=== PATIENT | male | born 1975 | race Caucasian/White ===

== ENCOUNTER → 2016-11-04 | Outpatient (CLI) | payer OTHER ==
[2016-11-04 12:59] LABS: ALBUMIN 3.8 GM/DL (3.2-5.2); ALBUMIN/GLOBULIN RATIO 1.03 (1.00-1.93); ALKALINE PHOSPHATASE 136 U/L (45-117); ALT/SGPT 215 U/L (12-78); ANION GAP 10 MEQ/L (8-16); AST/SGOT 86 U/L (15-37); BILIRUBIN,TOTAL 0.3 MG/DL (0.2-1.0); BLOOD UREA NITROGEN 15 MG/DL (7-18); CALCIUM LEVEL 9.8 MG/DL (8.5-10.1); CARBON DIOXIDE LEVEL 28 MEQ/L (21-32); CHLORIDE LEVEL 103 MEQ/L (98-107); CHOLESTEROL LEVEL 229 MG/DL (<200); CREATININE FOR GFR 1.05 MG/DL (0.70-1.30); GAMMA GLUTAMYLTRANSPEPTIDASE 158 U/L (15-85); GLOMERULAR FILTRATION RATE > 60.0 (>60); GLUCOSE, FASTING 98 MG/DL (70-105); SODIUM LEVEL 141 MEQ/L (136-145); TOTAL PROTEIN 7.5 GM/DL (6.4-8.2); TRIGLYCERIDES LEVEL 319 MG/DL (<150)
[2016-11-04 13:11] LABS: BASO % 0.2 % (0.0-1.0); EOS # 0.2 K/mm3 (0.0-0.50); EOS % 2.4 % (0.0-3.0); LARGE UNSTAINED CELL # 0.1 K/mm3 (0.0-0.4); LYMPH # 1.4 K/mm3 (1.5-4.5); LYMPH % 15.1 % (24.0-44.0); MEAN CORPUSCULAR HEMOGLOBIN 30.1 pg (27.0-33.0); MEAN CORPUSCULAR HGB CONC 33.4 g/dl (32.0-36.5); MEAN CORPUSCULAR VOLUME 90.3 fl (80.0-96.0); MONO # 0.4 K/mm3 (0.0-0.8); MONO % 4.2 % (0.0-5.0); NEUTROPHILS # 6.9 K/mm3 (1.8-7.7); PLATELET COUNT, AUTOMATED 166 k/mm3 (150-450); RED CELL DISTRIBUTION WIDTH 12.3 % (11.5-14.5)
== END ==
LOC: M WUC 10:07
PROVIDERS: ATTEND Family Medicine
DX: R10.11 Right upper quadrant pain (principal); Z13.220 Encounter for screening for lipoid disorders

== ENCOUNTER → 2017-02-14 | Outpatient (CLI) | payer OTHER ==
--- NOTE | 2017-02-14 13:34 | REP ---
Clinical: Right shoulder pain. Technique: Internal rotation, external rotation, and Y view. Findings: Subtle cortical irregularity and inferior spurring at the acromioclavicular joint suggests mild arthritic degenerative changes. Glenohumeral joint appears intact and normal for age. Subacromial space is normal. No periarticular calcifications are appreciated. No acute fracture or dislocation. Impression: Mild arthritic changes at the acromioclavicular joint. Signed by Gabino Menon MD 02/14/2017 01:26 P
== END ==
LOC: M WUC 13:10
PROVIDERS: ATTEND Family Medicine
DX: M25.511 Pain in right shoulder (principal); M19.011 Primary osteoarthritis, right shoulder

== ENCOUNTER → 2017-02-17 | Outpatient (CLI) | payer OTHER ==
[~2017-02-17] MED LIST: ALBU17IN INH; CYCL10TA PO; IBUP200C10 PO; MULT1TAB10 PO; NAPR250T4 PO; OMEP40CA2 PO; OXYC1TAB23 PO; TRAM50TA2 PO
--- NOTE | 2017-02-17 08:53 | REP ---
MRI study of the right shoulder without contrast: History: Pain in the right shoulder. Comparison right shoulder radiographs are from February 14, 2017. Technique: Axial, oblique coronal, and oblique sagittal imaging planes utilized. T1 and T2-weighted scans were obtained with without fat saturation. MRI findings: There is subcortical cyst formation in the superolateral aspect of the humeral head. Cortical and medullary bone signal intensity are otherwise normal. There is osteoarthritic hypertrophy superiorly and inferiorly at the acromioclavicular joint. There is a full-thickness T2 hyperintense 9 mm defect in the distal supraspinatus tendon at its distal insertion consistent with a full-thickness rotator cuff tear. A small quantity of subacromial subdeltoid bursal fluid is seen and there is a small amount of glenohumeral joint fluid. The infraspinatus and subscapularis tendons appear intact. No anterior or posterior labral disruption is seen. Superior labrum appears intact on T2-weighted scans. Biceps tendon is in the bony bicipital groove and appears intact. No juxtaarticular cyst or mass is seen. Impression: Full-thickness distal supraspinatus tendon cuff tear. Signed by Michael Kay MD 02/17/2017 08:45 A
== END ==
LOC: M RAD 06:53
PROVIDERS: ATTEND Student in an Organized Health Care Education/Training Program
DX: M25.511 Pain in right shoulder (principal)

== ENCOUNTER → 2017-02-27 | Outpatient (CLI) | payer OTHER ==
[~2017-02-27] VITALS: Ht 177.8 cm; Wt 92.1 kg
[~2017-02-27] MED LIST changes: +LIDOCAINE 2% INJ 100 MG/5 ML SDV (FOR ANES.) As Ordered ONE; +NS 1,000 ML IV ONE; +PROPOFOL 200 MG/20 ML VIAL As Ordered ONE
--- NOTE | 2017-02-27 12:37 | ROOR ---
Patient Name: Michael Christopher Procedure Date: 02/27/2017 12:18 PM Date of : 1975 Age: 41 Room: [facility] Gender: Male Note Status: Finalized Procedure: Upper Endoscopy + Biopsies Indications: Heartburn Providers: Danny Mercado MD Referring MD: Alyse Grider [facility] Requesting Provider: Medicines: Monitored Anesthesia Care Complications: No immediate complications. Procedure: Pre-Anesthesia Assessment: - The heart rate, respiratory rate, oxygen saturations, blood pressure, adequacy of pulmonary ventilation, and response to care were monitored throughout the procedure. The Endoscope was introduced through the mouth, and advanced to the second part of duodenum. The upper GI endoscopy was accomplished without difficulty. The patient tolerated the procedure well. Findings: The Z-line was regular and was found 40 cm from the incisors. Mucosal changes including ringed esophagus, longitudinal furrows, circumferential folds and crepe paper esophagus were found in the entire esophagus. Biopsies were obtained from the proximal and distal esophagus with cold forceps for histology of suspected eosinophilic esophagitis. A small hiatal hernia was present. Mildly severe esophagitis with no bleeding was found 40 cm from the incisors. Few superficial esophageal ulcers with no bleeding and no stigmata of recent bleeding were found 40 cm from the incisors. No other significant abnormalities were identified in a careful examination of the stomach. The exam of the duodenum was otherwise normal. Impression: - Z-line regular, 40 cm from the incisors. - Esophageal mucosal changes suggestive of eosinophilic esophagitis. Biopsied. - Small hiatal hernia. - Mildly severe reflux esophagitis. - Non-bleeding esophageal ulcers. - The examination was otherwise normal. Recommendation: - Patient has a contact number available for emergencies. The signs and symptoms of potential delayed complications were discussed with the patient. Return to normal activities tomorrow. Written discharge instructions were provided to the patient. - High fiber diet. - Discharge patient to home. - Continue present medications. - Await pathology results. - Telephone GI clinic for pathology results in 1 week. - Return to referring physician. - The findings and recommendations were discussed with the patient's family. - Patient has a contact number available for emergencies. The signs and symptoms of potential delayed complications were discussed with the patient. Return to normal activities tomorrow. Written discharge instructions were provided to the patient. - Discharge patient to home. - Follow an antireflux regimen. - Use Prilosec (omeprazole) 40 mg PO BID. - Return to referring physician. - Telephone GI clinic for pathology results in 1 week. - Check Portal Online for Path Results.([email or web address]) - The findings and recommendations were discussed with the patient's family. Danny Mercado MD Danny Mercado MD 02/27/2017 12:37:25 PM This report has been signed electronically. Number of Addenda: 0 Note Initiated On: 02/27/2017 12:18 PM Estimated Blood Loss: Estimated blood loss: none.
--- NOTE | 2017-02-27 12:49 | ROOR ---
Patient Name: Michael Christopher Procedure Date: 02/27/2017 12:19 PM Date of : 1975 Age: 41 [facility] Gender[facility] Note Status: Finalized Procedure: Total Colonoscopy to Cecum Indications: Rectal bleeding Providers: Danny Mercado MD Referring MD: Alyse Grider [facility] Requesting Provider: Medicines: Monitored Anesthesia Care Complications: No immediate complications. Procedure: Pre-Anesthesia Assessment: - The heart rate, respiratory rate, oxygen saturations, blood pressure, adequacy of pulmonary ventilation, and response to care were monitored throughout the procedure. The Colonoscope was introduced through the anus and advanced to the cecum, identified by appendiceal orifice and ileocecal valve. The colonoscopy was performed without difficulty. The patient tolerated the procedure well. The quality of the bowel preparation was good. Findings: The perianal and digital rectal examinations were normal. Non-bleeding internal hemorrhoids were found during retroflexion. The hemorrhoids were small and Grade I (internal hemorrhoids that do not prolapse). No other significant abnormalities were identified in a careful examination of the remainder of the colon. The exam was otherwise without abnormality on direct and retroflexion views. Impression: - Non-bleeding internal hemorrhoids. - The examination was otherwise normal on direct and retroflexion views. - No specimens collected. - The exam was otherwise normal to the cecum. Recommendation: - Patient has a contact number available for emergencies. The signs and symptoms of potential delayed complications were discussed with the patient. Return to normal activities tomorrow. Written discharge instructions were provided to the patient. - High fiber diet. - Discharge patient to home. - Continue present medications. - Repeat colonoscopy in 10 years for screening purposes. - Return to referring physician. - The findings and recommendations were discussed with the patient's family. Danny Mercado MD Danny Mercado MD 02/27/2017 12:49:04 PM This report has been signed electronically. Number of Addenda: 0 Note Initiated On: 02/27/2017 12:19 PM Estimated Blood Loss: Estimated blood loss: none.
[2017-02-27 13:19] VITALS: BP 131/88
== END | disposition home or self-care (01) ==
LOC: M OPP 11:44
PROVIDERS: ATTEND Internal Medicine Gastroenterology
DX: K62.5 Hemorrhage of anus and rectum (principal); K64.0 First degree hemorrhoids; R12 Heartburn; K44.9 Diaphragmatic hernia without obstruction or gangrene; K21.0 Gastro-esophageal reflux disease with esophagitis; K22.10 Ulcer of esophagus without bleeding; E78.5 Hyperlipidemia, unspecified; R51 Headache; J45.909 Unspecified asthma, uncomplicated; R06.83 Snoring; G47.8 Other sleep disorders; Z80.3 Family history of malignant neoplasm of breast; Z80.0 Family history of malignant neoplasm of digestive organs; F17.210 Nicotine dependence, cigarettes, uncomplicated; Z79.899 Other long term (current) drug therapy

== ENCOUNTER 2017-04-19 09:45 | Outpatient (RCR) | payer OTHER ==
[~2017-04-19 09:45] MED LIST changes: -LIDOCAINE 2% INJ 100 MG/5 ML SDV (FOR ANES.) As Ordered ONE; -MULT1TAB10 PO; -NAPR250T4 PO; -NS 1,000 ML IV ONE; -OMEP40CA2 PO; -OXYC1TAB23 PO; -PROPOFOL 200 MG/20 ML VIAL As Ordered ONE; -TRAM50TA2 PO
[2017-05-08] MEDS ORDERED: MULT1TAB10 PO (12:49)
[2017-05-08] MEDS ORDERED: IBUP200C10 PO (12:49)
[2017-05-08] MEDS ORDERED: NAPR250T4 PO (12:49)
[2017-05-08] MEDS ORDERED: OXYC1TAB23 PO (12:49)
== END 2017-04-20 09:39 | disposition home or self-care (01) ==
LOC: M PT 09:45
PROVIDERS: ATTEND Orthopaedic Surgery
DX: Z47.89 Encounter for other orthopedic aftercare (principal)

== ENCOUNTER 2017-04-24 14:50 | Emergency (ER) | payer OTHER, SELFPAY ==
[~2017-04-24] VITALS: Ht 175.3 cm; Wt 90.0 kg
[2017-04-24 14:50] VITALS: BP 129/86
[2017-04-24] MEDS ORDERED: TRAM50TA2 PO (19:27)
[2017-04-24] MEDS ORDERED: OMEP40CA2 PO (19:27)
[2017-04-24] MEDS ORDERED: OXYC1TAB23 PO (19:29)
[2017-05-08] MEDS ORDERED: MULT1TAB10 PO (12:49)
[2017-05-08] MEDS ORDERED: OXYC1TAB23 PO (12:49)
[2017-05-08] MEDS ORDERED: NAPR250T4 PO (12:49)
[2017-05-08] MEDS ORDERED: IBUP200C10 PO (12:49)
== END 2017-04-24 15:47 | disposition left against medical advice (07) ==
LOC: M ED 14:50
DX: M25.519 Pain in unspecified shoulder (principal); Z53.21 Procedure and treatment not carried out due to patient leaving prior to being seen by health care provider

== ENCOUNTER 2017-04-24 19:05 | Emergency (ER) | payer OTHER, SELFPAY ==
[~2017-04-24] VITALS: Ht 177.8 cm; Wt 90.9 kg
[2017-04-24] MEDS ORDERED: TRAM50TA2 PO (19:27)
[2017-04-24] MEDS ORDERED: OMEP40CA2 PO (19:27)
[2017-04-24] MEDS ORDERED: OXYC1TAB23 PO (19:29)
[2017-04-24] MEDS ORDERED: MORPHINE 2 MG/ML 1ML SYRINGE IV ONE (20:45)
[2017-04-24] MEDS ORDERED: MORPHINE 4 MG/ML 1ML SYRINGE IV ONE (23:00)
[2017-04-25 00:25] VITALS: BP 138/68
--- NOTE | 2017-04-25 08:05 | REP ---
Clinical: Pain . Technique: Internal rotation, external rotation, and Y view right shoulder. Comparison: 02/14/2017 . Findings: No acute fracture or dislocation. Subtle stable cortical irregularity at the acromioclavicular joint suggests mild degenerative change. The glenohumeral joint is intact and normal. No further overt degenerative changes are appreciated. No periarticular calcifications are identified. Surrounding soft tissues are normal. Impression: Minimal stable degenerative changes at the acromioclavicular joint. Signed by Gabino Menon MD 04/25/2017 07:56 A
[2017-05-08] MEDS ORDERED: NAPR250T4 PO (12:49)
[2017-05-08] MEDS ORDERED: OXYC1TAB23 PO (12:49)
[2017-05-08] MEDS ORDERED: MULT1TAB10 PO (12:49)
[2017-05-08] MEDS ORDERED: IBUP200C10 PO (12:49)
== END 2017-04-25 00:25 | disposition home or self-care (01) ==
LOC: M ED 19:05 → EDBD 19:05 → M ED 04-25 00:25
DX: S46.911A Strain of unspecified muscle, fascia and tendon at shoulder and upper arm level, right arm, initial encounter (principal); X58.XXXA Exposure to other specified factors, initial encounter; Y92.9 Unspecified place or not applicable; Y93.9 Activity, unspecified; Y99.9 Unspecified external cause status; Z98.890 Other specified postprocedural states; J45.909 Unspecified asthma, uncomplicated; F17.200 Nicotine dependence, unspecified, uncomplicated; Z79.899 Other long term (current) drug therapy

== ENCOUNTER 2017-05-09 14:06 | Day surgery (SDC) | payer OTHER ==
[~2017-05-09] VITALS: Ht 177.8 cm; Wt 90.7 kg
[~2017-05-09 14:06] MED LIST changes: +MULT1TAB10 PO; +NAPR250T4 PO; +OMEP40CA2 PO; +OXYC1TAB23 PO; +TRAM50TA2 PO
[2017-05-09] MEDS ORDERED: dexameTHASONE 10 MG/1 ML VIAL PRES.FREE (J1100) ONE (14:07)
[2017-05-09] MEDS ORDERED: ROPIvacaine 0.5% 30 ML INJECTION (J2795) ONE (14:07)
[2017-05-09] MEDS ORDERED: LIDOCAINE 1% MDV 20ML VIAL ONE (14:07)
[2017-05-09] MEDS ORDERED: VANCOMYCIN HCL 1,000 MG, VIAL MATE ADAPTER 1 EACH in D5W 250 ML IV ONE (14:15)
[2017-05-09] MEDS ORDERED: LR 1,000 ML IV SCH ×3 (14:15→19:15)
[2017-05-09] MEDS ORDERED: NORCO, ANEXSIA 5/325MG TABLET (HYDROcodone/ACETAMINOPHEN) PO ONE (15:45)
[2017-05-09] MEDS ORDERED: fentaNYL 100 MCG/2 ML INJECTION (J3010) As Ordered ONE ×3 (15:55→18:15)
[2017-05-09] MEDS ORDERED: MIDAZOLAM INJ 2 MG/2 ML VIAL (J2250) As Ordered ONE ×2 (15:55→16:40)
[2017-05-09] MEDS ORDERED: EPINEPHrine 1MG/ML INJ 30ML MD-VIAL As Ordered ONE (16:18)
[2017-05-09] MEDS ORDERED: fentaNYL 100 MCG/2 ML INJECTION (J3010) IV SCH (16:30)
[2017-05-09] MEDS ORDERED: MIDAZOLAM INJ 2 MG/2 ML VIAL (J2250) IV SCH (16:30)
[2017-05-09] MEDS ORDERED: fentaNYL 100 MCG/2 ML INJECTION (J3010) IV PRN ×2 (16:45→19:15)
[2017-05-09] MEDS ORDERED: LIDOCAINE 2% INJ 100 MG/5 ML SDV (FOR ANES.) As Ordered ONE (17:25)
[2017-05-09] MEDS ORDERED: ONDANSETRON 4MG/2ML VIAL (J2405) As Ordered ONE (17:25)
[2017-05-09] MEDS ORDERED: PROPOFOL 200 MG/20 ML VIAL As Ordered ONE (17:25)
[2017-05-09] MEDS ORDERED: dexameTHASONE 4 MG/ML 1ML VIAL (J1100) As Ordered ONE (17:25)
[2017-05-09] MEDS ORDERED: KETOROLAC 60 MG/2 ML VIAL (J1885) As Ordered ONE (17:28)
[2017-05-09] MEDS ORDERED: ROCURONIUM BROMIDE 50 MG/5 ML VIAL/SYRINGE As Ordered ONE (17:28)
[2017-05-09] MEDS ORDERED: PERCOCET 5MG/325MG TAB PO PRN (19:15)
[2017-05-09] MEDS ORDERED: MORPHINE 4 MG/ML 1ML SYRINGE IV PRN (19:15)
[2017-05-09] MEDS ORDERED: ONDANSETRON 4MG/2ML VIAL (J2405) IV PRN (19:15)
[2017-05-09] MEDS ORDERED: NORCO, ANEXSIA 5/325MG TABLET (HYDROcodone/ACETAMINOPHEN) PO PRN ×2 (19:15)
[2017-05-09] MEDS ORDERED: HYDROmorphone HCL 1 MG/ML SYRINGE (J1170) IV PRN (19:15)
[2017-05-09 20:00] VITALS: BP 136/78
--- NOTE | 2017-05-10 00:28 | RO ---
DATE OF PROCEDURE: 05/09/2017 PREOPERATIVE DIAGNOSIS: Recurrent rotator cuff tear right shoulder. POSTOPERATIVE DIAGNOSIS: Recurrent rotator cuff tear right shoulder. PROCEDURE: 1. Removal of two medial row anchors and removal of two lateral row anchors right shoulder. 2. Revision rotator cuff tendon repair using an extended SpeedFix technique using FiberTapes and [employer]Med pop it (PopLok) 4.5 mm devices laterally. SURGEON: Dr. Margaret Ellis SPECIAL EDUCATION CASE MANAGER: ANESTHESIA: Right interscalene nerve block with general endotracheal tube anesthetic. COMPLICATIONS: None. FINDINGS: He had a recurrent tear of the rotator cuff. It was basically identical to how he was before the surgery, and the sutures were loose, consistent with a re-tear. The anchors appeared to still be in place and in position. DESCRIPTION OF PROCEDURE: Antibiotics were given intravenously preoperatively, and a successful right interscalene nerve block and general endotracheal tube anesthetic was established. Placed in a semi beach chair position, and a spider shoulder talavera was utilized. Vancomycin was given preoperatively. His right shoulder area was prepped and draped in the usual sterile fashion. Then, after appropriate time-out, routine diagnostic arthroscopy was performed through the posterior portal. The articular portion of the shoulder looked good in terms of no chondral damage was seen or biceps pathology, but you could see that there was a rotator cuff tear above at the supraspinatus and tendon insertion point. This was photographed. I then placed the scope in the subacromial space, had excellent visualization, and identified the tear. I removed my visualization portal from posterior to more posterolateral, established a lateral working cannula through the previous lateral incision, as well as an anterior working portal. Attention was first placed to cutting the sutures that were present within the joint. I used the suture cutter device to shorten them as much as I could and remove all excess strands, and then I was able to grab the knot balls from the two medial row anchors using a pituitary rongeur and I removed them in total. Then, in the lateral rows, I used the ConMed insertion device to unscrew the posterolateral row anchor; and then the anterior lateral row anchor was unscrewed using a BirdBeak device because the implant record press tender would not fit, but I was able to thankfully and successfully remove all of the implants. At this point, the medial row holes were too large to accommodate another SwiveLock of 4.75 mm in diameter because the holes were now 5 mm, so I did not think I had an option to place the medial row without causing undue damage to the bone; and I elected to proceed with a lateral row only repair and using a SpeedFix-type technique with crossed FiberTapes to the two PopLok devices from [employer], which expand into the previous tunnel. At this point, I cleaned up the torn rotator cuff edges and re-debrided the supraspinatus footprint down to good bleeding bone bed. Multiple photographs were taken, and then I was able to pass two FiberTapes, passing each limb of the FiberTapes individually such that I had four passes, providing two inverted mattress sutures beginning. First, the anterior FiberTape was placed, then docked outside the joint, then the posterior was passed and docked outside the joint. Then, I grabbed one limb from the posterior set of sutures and one limb from the anterior set of sutures, brought it out through the cannula, loaded on the PopLok device, and then I used their awl to be sure the depth and tunnel diameter was adequate to accommodate the implant. Once I confirmed that, I applied appropriate tension and inserted the PopLok device and then deployed it. It had excellent fixation. I then cut the sutures short and grabbed the two remaining sutures into a second PopLok [employer] implant device, which was 4.5 mm again, loaded on the device outside the joint, used the awl to be sure we had appropriate size hole, and then inserted the implant, adjusted the tension appropriately on the FiberTapes, and then deployed the implant. This provided an excellent, very satisfying repair. It was nice and watertight. There was complete repair noted. Photographs were taken. The sutures were cut short. No other arthroscopic treatable pathology was identified at this point. Then, we copiously irrigated the subacromial space, closed the arthroscopy portals with nylon sutures, covered by Adaptic dry sterile bulky dressing. He was placed back into his abduction pillow brace, then awakened from general endotracheal tube anesthesia after having tolerated the procedure well, transferred to the recovery room in stable condition. There were no intraoperative complications.
== END 2017-05-09 20:10 | disposition home or self-care (01) ==
LOC: M SDC 14:06
PROVIDERS: ATTEND Orthopaedic Surgery
DX: S46.011A Strain of muscle(s) and tendon(s) of the rotator cuff of right shoulder, initial encounter (principal); M25.511 Pain in right shoulder; W19.XXXA Unspecified fall, initial encounter; Y92.89 Other specified places as the place of occurrence of the external cause; Y99.9 Unspecified external cause status; E78.5 Hyperlipidemia, unspecified; J45.909 Unspecified asthma, uncomplicated; K21.9 Gastro-esophageal reflux disease without esophagitis; Z79.899 Other long term (current) drug therapy; F17.210 Nicotine dependence, cigarettes, uncomplicated
CPT/HCPCS: 29827; 64415; C1713

== ENCOUNTER 2017-05-18 10:11 | Outpatient (RCR) | payer OTHER | END 2017-05-20 | LOC: M PT 10:11 | PROVIDERS: ATTEND Orthopaedic Surgery | DX: Z51.89 Encounter for other specified aftercare (principal) ==

== ENCOUNTER 2017-06-08 12:00 | Outpatient (RCR) | payer OTHER | END 2017-06-20 | LOC: M PT 12:00 | PROVIDERS: ATTEND Orthopaedic Surgery | DX: Z51.89 Encounter for other specified aftercare (principal) ==

== ENCOUNTER → 2018-06-09 | Outpatient (REF) | payer OTHER | LOC: M LAB REF 09:10 | DX: J02.9 Acute pharyngitis, unspecified (principal) | CPT/HCPCS: 87070 ==

== ENCOUNTER → 2019-05-06 | Outpatient (REF) | payer OTHER ==
[~2019-05-06] MED LIST changes: -IBUP200C10 PO; +IBUP200C25 PO
== END ==
LOC: M SFHCLERA 20:36
PROVIDERS: ATTEND Nurse Practitioner Family
DX: R11.2 Nausea with vomiting, unspecified (principal)

== ENCOUNTER 2019-12-03 01:27 | Emergency (ER) | payer SELFPAY ==
[~2019-12-03] VITALS: Ht 177.8 cm; Wt 79.5 kg
[~2019-12-03 01:27] MED LIST changes: +CYCL-707 PO; -CYCL10TA PO; -OMEP40CA2 PO; +OMEP40CA97 PO
[2019-12-03] MEDS ORDERED: NORCO, ANEXSIA 5/325MG TABLET (HYDROcodone/ACETAMINOPHEN) PO ONE (01:45)
[2019-12-03] MEDS ORDERED: OXYCODONE/APAP 5MG/325MG(BULK FOR ED) 1 TABLET PO ONE (02:45)
--- NOTE | 2019-12-03 02:47 | REP ---
Clinical: Trauma. Technique: AP, lateral, bilateral oblique views of the right calcaneus. Findings: Nondisplaced fracture through the body of the calcaneus with overlying ankle swelling noted. No subcutaneous emphysema or foreign body. Impression: Nondisplaced Calcaneal fracture. Electronically Signed by Gabino Menon MD 12/03/2019 02:39 A
--- NOTE | 2019-12-03 02:48 | REP ---
Clinical: Trauma. Fall. Technique: AP and lateral views of the right tibia / fibula. Findings: Tibia and fibula are intact. A nondisplaced fracture through the body of the calcaneus noted. No subcutaneous emphysema or foreign body. Impression: 1. Normal tibia / fibula. 2. Nondisplaced calcaneal fracture. Electronically Signed by Gabino Menon MD 12/03/2019 02:40 A
--- NOTE | 2019-12-03 02:50 | REP ---
Clinical: Trauma. Technique: AP, lateral, bilateral oblique views of the right ankle. Findings: Nondisplaced calcaneal fracture noted along with overlying soft tissue swelling. Ankle mortise appears intact. Talonavicular, calcaneocuboid, and talocalcaneal joint spaces appear relatively intact. Impression: Nondisplaced fracture through the body of the calcaneus. Electronically Signed by Gabino Menon MD 12/03/2019 02:41 A
--- NOTE | 2019-12-03 02:52 | REP ---
Clinical: Trauma. Technique: AP and axial views of the right calcaneus. Findings: There is a nondisplaced fracture through the body of the calcaneus. Calcaneal joint spaces appear intact and relatively unaffected. Overlying soft tissue swelling noted. Impression: Nondisplaced fracture of the calcaneus. Electronically Signed by Gabino Menon MD 12/03/2019 02:44 A
[2019-12-03 03:02] VITALS: BP 130/84
== END 2019-12-03 03:03 | disposition home or self-care (01) ==
LOC: M ED 01:27
DX: S92.014A Nondisplaced fracture of body of right calcaneus, initial encounter for closed fracture (principal); W01.0XXA Fall on same level from slipping, tripping and stumbling without subsequent striking against object, initial encounter; Y92.9 Unspecified place or not applicable; K21.9 Gastro-esophageal reflux disease without esophagitis; F17.210 Nicotine dependence, cigarettes, uncomplicated

== ENCOUNTER → 2020-12-15 | Outpatient (REF) | payer OTHER ==
[~2020-12-15] MED LIST changes: +NAPR-849 PO; -NAPR250T4 PO
== END ==
LOC: M LAB REF 11:10
PROVIDERS: ATTEND Surgery
DX: U07.1 COVID-19 (principal)

== ENCOUNTER → 2023-06-06 | Outpatient (REF) ==
[~2023-06-06] MED LIST changes: +OMEP40CA4 PO; -OMEP40CA97 PO
== END ==
LOC: M PLAIMG 13:09
PROVIDERS: ATTEND Internal Medicine
DX: M79.89 Other specified soft tissue disorders (principal); Z87.81 Personal history of (healed) traumatic fracture; M19.011 Primary osteoarthritis, right shoulder

== ENCOUNTER → 2023-07-28 | Outpatient (CLI) | payer OTHER ==
[~2023-07-28] MED LIST changes: +ISOVUE-370 76% 100ML VIAL As Ordered ONE
== END ==
LOC: M RAD 07:34
PROVIDERS: ATTEND Physician Assistant
DX: R06.02 Shortness of breath (principal); R79.89 Other specified abnormal findings of blood chemistry; F17.200 Nicotine dependence, unspecified, uncomplicated
CPT/HCPCS: 71275; 76705; Q9967

== ENCOUNTER → 2023-08-01 | Outpatient (CLI) | payer OTHER ==
[~2023-08-01] MED LIST changes: -ISOVUE-370 76% 100ML VIAL As Ordered ONE
[2023-08-01 10:40] LABS: INR 0.92; PROTHROMBIN TIME 12.1 SECONDS (12.5-14.5)
[2023-08-01 10:41] LABS: PARTIAL THROMBOPLASTIN TIME 27.4 SECONDS (24.8-34.2)
[2023-08-03 17:08] LABS: AFP TUMOR TOTAL 2.3 ng/mL (0.0-6.9)
== END ==
LOC: M PLALAB 08:23
PROVIDERS: ATTEND Physician Assistant
DX: R79.89 Other specified abnormal findings of blood chemistry (principal); M54.2 Cervicalgia

== ENCOUNTER → 2023-09-05 | Outpatient (CLI) | payer OTHER | LOC: M SLEEP HO 12:20 | PROVIDERS: ATTEND Physician Assistant | DX: R06.02 Shortness of breath (principal); Z53.8 Procedure and treatment not carried out for other reasons ==

== ENCOUNTER → 2023-11-21 | Outpatient (CLI) | payer OTHER ==
[2023-11-21 14:27] LABS: ALBUMIN 3.8 G/DL (3.2-5.2); ALKALINE PHOSPHATASE 117 U/L (46-116); ALT/SGPT 219 U/L (7.0-40); AST/SGOT 115 U/L (<34); BILIRUBIN,TOTAL 0.4 MG/DL (0.3-1.2); BLOOD UREA NITROGEN 16 MG/DL (9-23); CALCIUM LEVEL 9.1 MG/DL (8.5-10.1); CARBON DIOXIDE LEVEL 32 MMOL/L (20-31); CHLORIDE LEVEL 101 MMOL/L (98-107); CREATININE FOR GFR 0.91 MG/DL (0.70-1.30); GLOMERULAR FILTRATION RATE > 60.0 (>60); GLUCOSE, FASTING 89 MG/DL (60-100); SODIUM LEVEL 137 MMOL/L (136-145); TOTAL PROTEIN 6.9 G/DL (5.7-8.2)
== END ==
LOC: M PLALAB 11:26
PROVIDERS: ATTEND Physician Assistant
DX: R74.8 Abnormal levels of other serum enzymes (principal)

== ENCOUNTER → 2024-01-30 | Outpatient (CLI) | payer OTHER | LOC: M CARPUL 09:39 | PROVIDERS: ATTEND Nurse Practitioner Adult Health | DX: J43.9 Emphysema, unspecified (principal) ==

== ENCOUNTER → 2024-03-14 | Outpatient (CLI) | payer OTHER | LOC: M SLEEP 20:00 | PROVIDERS: ATTEND Nurse Practitioner Adult Health | DX: G47.33 Obstructive sleep apnea (adult) (pediatric) (principal) ==

== ENCOUNTER → 2024-03-19 | Outpatient (CLI) | payer OTHER | LOC: M PLAIMG 08:58 | PROVIDERS: ATTEND Physician Assistant | DX: M54.2 Cervicalgia (principal); M19.012 Primary osteoarthritis, left shoulder ==

== ENCOUNTER → 2024-06-14 | Outpatient (CLI) | payer OTHER ==
[2024-06-14 18:25] LABS: BASO # 0.1 10^3/uL (0.0-0.2); BASO % 0.5 % (0.0-1.0); EOS # 0.3 10^3/uL (0.0-0.5); EOS % 2.4 % (0.0-3.0); HEMOGLOBIN 16.9 g/dl (13.5-17.5); LYMPH # 1.5 10^3/uL (1.5-5.0); LYMPH % 14.5 % (24.0-44.0); MEAN CORPUSCULAR HEMOGLOBIN 32.2 pg (27.0-33.0); MEAN CORPUSCULAR HGB CONC 33.1 g/dl (32.0-36.5); MEAN CORPUSCULAR VOLUME 97.1 fl (80.0-96.0); MONO # 0.7 10^3/uL (0.0-0.8); MONO % 6.8 % (2.0-8.0); NEUTROPHILS # 7.8 10^3/uL (1.5-8.5); NEUTROPHILS % 75.1 % (36.0-66.0); PLATELET COUNT, AUTOMATED 157 10^3/uL (150-450); RED BLOOD COUNT 5.25 10^6/uL (4.30-6.10); WHITE BLOOD COUNT 10.4 10^3/uL (4.0-10.0)
[2024-06-14 18:39] LABS: ERYTHROCYTE SEDIMENTATION RATE 44 mm/hr (0-15)
[2024-06-14 18:55] LABS: ALBUMIN 3.4 G/DL (3.2-5.2); ALKALINE PHOSPHATASE 142 U/L (40-129); ALT/SGPT 321 U/L (7.0-40); AST/SGOT 283 U/L (<34); BILIRUBIN,TOTAL 0.3 MG/DL (0.3-1.2); BLOOD UREA NITROGEN 13 MG/DL (9-23); CALCIUM LEVEL 9.3 MG/DL (8.5-10.1); CARBON DIOXIDE LEVEL 25 MMOL/L (20-31); CHLORIDE LEVEL 107 MMOL/L (98-107); CHOLESTEROL LEVEL 202 MG/DL (<200); CHOLESTEROL RISK RATIO 9.66 (<5); CREATININE FOR GFR 0.73 MG/DL (0.70-1.30); GLOMERULAR FILTRATION RATE > 60.0 (>60); GLUCOSE, FASTING 113 MG/DL (60-100); HDL CHOLESTEROL 20.9 MG/DL (>40); NON-HDL-C 181.1 MG/DL; SODIUM LEVEL 140 MMOL/L (136-145); TOTAL PROTEIN 7.3 G/DL (5.7-8.2); TRIGLYCERIDES LEVEL 451 MG/DL (<150)
[2024-06-14 18:56] LABS: RHEUMATOID FACTOR QUANT < 3.5 IU/ML (<14)
[2024-06-14 18:57] LABS: FERRITIN 980.7 NG/ML (10.5-307.3); TOTAL 25(OH) VITAMIN D 31.4 NG/ML (20.0-100.0)
[2024-06-18 04:48] LABS: CYCLIC CITRULLINATED PEPTIDE < 16 UNITS (<20)
[2024-06-18 15:26] LABS: IgG P18 AB NON-REACTIVE; IgG P23 AB NON-REACTIVE; IgG P28 AB NON-REACTIVE; IgG P30 AB NON-REACTIVE; IgG P39 AB NON-REACTIVE; IgG P41 AB NON-REACTIVE; IgG P45 AB NON-REACTIVE; IgG P58 AB NON-REACTIVE; IgG P66 AB NON-REACTIVE; IgG P93 AB NON-REACTIVE; IgM P23 AB NON-REACTIVE; IgM P39 AB NON-REACTIVE; IgM P41 AB NON-REACTIVE; LYME IgG WB INTERPRETATION NEGATIVE (NEGATIVE); LYME IgM WB INTERPRETATION NEGATIVE (NEGATIVE)
== END ==
LOC: M PLALAB 15:44
PROVIDERS: ATTEND Physician Assistant
DX: K74.00 Hepatic fibrosis, unspecified (principal); K76.0 Fatty (change of) liver, not elsewhere classified; E55.9 Vitamin D deficiency, unspecified; E78.2 Mixed hyperlipidemia; R05.3 Chronic cough; R09.82 Postnasal drip; M25.511 Pain in right shoulder; M25.512 Pain in left shoulder; M25.562 Pain in left knee; M79.641 Pain in right hand; M79.642 Pain in left hand

== ENCOUNTER → 2024-07-11 | Outpatient (CLI) | payer OTHER | LOC: M PLAIMG 11:31 | PROVIDERS: ATTEND Nurse Practitioner Adult Health | DX: R91.8 Other nonspecific abnormal finding of lung field (principal) ==

== ENCOUNTER → 2024-07-24 | Outpatient (CLI) | payer OTHER ==
[2024-07-24 17:48] LABS: ALBUMIN 3.7 G/DL (3.2-5.2); ALKALINE PHOSPHATASE 109 U/L (40-129); ALT/SGPT 349 U/L (7.0-40); AST/SGOT 251 U/L (<34); BILIRUBIN,DIRECT 0.1 MG/DL (<0.4); BILIRUBIN,TOTAL 0.4 MG/DL (0.3-1.2); IRON (FE) 101 UG/DL (65-175); PERCENT SATURATION 29.9 % (19.7-50.0); TOTAL IRON BINDING CAPACITY 338 UG/DL (250-425); TOTAL PROTEIN 7.4 G/DL (5.7-8.2)
[2024-07-24 17:49] LABS: IMMUNOGLOBULIN A 335.6 MG/DL (40-350)
[2024-07-24 18:02] LABS: HEPATITIS B SURFACE ANTIGEN NEGATIVE (NEGATIVE)
[2024-07-24 18:24] LABS: HEPATITIS B CORE ANTIBODY IGM NEGATIVE (NEGATIVE); HEPATITIS C VIRUS ABY INDEX < 0.02 INDEX (<0.8)
== END ==
LOC: M LRY 10:35
PROVIDERS: ATTEND Internal Medicine Gastroenterology
DX: R74.01 Elevation of levels of liver transaminase levels (principal)

== ENCOUNTER 2024-10-29 07:41 | Day surgery (SDC) | payer OTHER, SELFPAY ==
[~2024-10-29] VITALS: Ht 177.8 cm; Wt 96.2 kg
[~2024-10-29 07:41] MED LIST changes: +LIDOCAINE 2% 100MG/5ML SDV (FOR ANES.) As Ordered ONE; +propofoL 200 MG/20 ML VIAL As Ordered ONE
[2024-10-29] MEDS ORDERED: ALBUTEROL SULFATE 2.5MG/0.5ML INH CONCENTRATE NEB SOLN As Ordered ONE (08:22)
[2024-10-29] MEDS ORDERED: fentaNYL 100 MCG/2 ML INJECTION As Ordered ONE (08:28)
[2024-10-29] MEDS: ALBUTEROL SULFATE 2.5MG/0.5ML INH CONCENTRATE NEB SOLN NEB ONE (08:29)
[2024-10-29 09:35] VITALS: TEMP 97.2
[2024-10-29 09:54] VITALS: BP 133/80; O2SAT 95
== END 2024-10-29 09:55 | disposition home or self-care (01) ==
LOC: M SDC 07:41
PROVIDERS: ATTEND Internal Medicine Gastroenterology
DX: D12.0 Benign neoplasm of cecum (principal); R19.7 Diarrhea, unspecified; K57.30 Diverticulosis of large intestine without perforation or abscess without bleeding; K64.8 Other hemorrhoids; K20.90 Esophagitis, unspecified without bleeding; K44.9 Diaphragmatic hernia without obstruction or gangrene; K29.70 Gastritis, unspecified, without bleeding; J43.9 Emphysema, unspecified; K76.0 Fatty (change of) liver, not elsewhere classified; F17.210 Nicotine dependence, cigarettes, uncomplicated; G47.30 Sleep apnea, unspecified; Z79.899 Other long term (current) drug therapy
CPT/HCPCS: 43239; 45380; 45385; 88305; J3010

== ENCOUNTER 2024-11-23 08:36 | Emergency (ER) | payer MEDICAID, OTHER ==
[~2024-11-23] VITALS: Ht 177.8 cm; Wt 94.0 kg
[~2024-11-23 08:36] MED LIST changes: -LIDOCAINE 2% 100MG/5ML SDV (FOR ANES.) As Ordered ONE; -propofoL 200 MG/20 ML VIAL As Ordered ONE
[2024-11-23 09:23] LABS: HEMATOCRIT 47.6 % (42.0-52.0); HEMOGLOBIN 16.2 g/dl (13.5-17.5); MEAN CORPUSCULAR HEMOGLOBIN 31.4 pg (27.0-33.0); MEAN CORPUSCULAR VOLUME 92.2 fl (80.0-96.0); PLATELET COUNT, AUTOMATED 150 10^3/uL (150-450); RED BLOOD COUNT 5.16 10^6/uL (4.30-6.10); WHITE BLOOD COUNT 7.8 10^3/uL (4.0-10.0)
[2024-11-23 09:44] LABS: ETHYL ALCOHOL (ETHANOL) 0.004 % (0.000-0.010)
[2024-11-23 09:46] LABS: ALBUMIN 3.7 G/DL (3.2-5.2); ALKALINE PHOSPHATASE 82 U/L (40-129); ALT/SGPT 191 U/L (7.0-40); AST/SGOT 158 U/L (<34); BILIRUBIN,DIRECT 0.2 MG/DL (<0.4); BILIRUBIN,TOTAL 0.7 MG/DL (0.3-1.2); BLOOD UREA NITROGEN 13 MG/DL (9-23); CALCIUM LEVEL 8.7 MG/DL (8.5-10.1); CARBON DIOXIDE LEVEL 28 MMOL/L (20-31); CHLORIDE LEVEL 103 MMOL/L (98-107); CREATININE FOR GFR 0.68 MG/DL (0.70-1.30); GLOMERULAR FILTRATION RATE > 60.0 (>60); GLUCOSE, FASTING 85 MG/DL (60-100); POTASSIUM SERUM 3.8 MMOL/L (3.5-5.1); SALICYLATE LEVEL < 3.0 MG/DL (<30); SODIUM LEVEL 139 MMOL/L (136-145); TOTAL PROTEIN 7.1 G/DL (5.7-8.2)
[2024-11-23 09:48] LABS: THYROID STIMULATING HORMONE 0.744 uIU/ML (0.55-4.78)
[2024-11-23 11:21] LABS: AMPHETAMINES LEVEL URINE NEGATIVE (NEGATIVE); BARBITURATES URINE NEGATIVE (NEGATIVE); BENZODIAZEPINES URINE NEGATIVE (NEGATIVE); METHADONE URINE NEGATIVE (NEGATIVE); OPIATES URINE NEGATIVE (NEGATIVE); PHENCYCLIDINE URINE NEGATIVE (NEGATIVE)
[2024-11-23 11:26] LABS: CANNABINOIDS URINE POSITIVE (NEGATIVE); COCAINE METABOLITE URINE POSITIVE (NEGATIVE)
[2024-11-23 12:56] VITALS: BP 132/83; TEMP 96.4; O2SAT 97
== END 2024-11-23 12:58 | disposition home or self-care (01) ==
LOC: M ED 08:36
DX: Z04.6 Encounter for general psychiatric examination, requested by authority (principal); J45.909 Unspecified asthma, uncomplicated; F20.9 Schizophrenia, unspecified; F17.200 Nicotine dependence, unspecified, uncomplicated; Z79.899 Other long term (current) drug therapy